=== PATIENT | male | born 1960 | race Caucasian/White ===

== ENCOUNTER 2018-04-27 11:01 | Inpatient (IN) | payer OTHER ==
[2018-04-27 11:10] VITALS: BMI 37.7
--- NOTE | 2018-04-27 14:10 | HP ---
CIWA Score - CIWA Score Nausea/Vomitin Muscle Tremors: 3 Anxiety: 3 Agitation: 3 Paroxysmal Sweats: 1-Minimal Palms Moist Orientation: 0-Oriented Tacttile Disturbances: 1-Very Mild Itch/Numbness Auditory Disturbances: 1-Very Mild Visual Disturbances: 0-None Headache: 2-Mild CIWA-Ar Total Score: 17 Admission ROS BHS - HPI Chief Complaint: i need help to sotp using xanax and klonopin Allergies/Adverse Reactions: Allergies Allergy/AdvReac Type Severity Reaction Status Date / Time No Known Allergies Allergy Verified 04/27/18 12:33 History of Present Illness: this 57 years old male with klonopin and xanax dependence,seeking detox, withdrawal symptom,last detox nicotine dependence schizophrenia last detox 2014 multiple admissions in the past last 13 years ago longest period of sobriety 13 years Exam Limitations: No Limitations - Ebola screening Have you traveled outside of the country in the last 21 days: No Have you been sick,other than usual withdrawal symptoms: No - Review of Systems Constitutional: Loss of Appetite, Malaise, Night Sweats, Changes in sleep, Weakness EENT: reports: Nose Congestion Respiratory: reports: No Symptoms reported Cardiac: reports: Palpitations GI: reports: Diarrhea, Nausea, Vomiting, Abdominal cramping : reports: No Symptoms Reported Musculoskeletal: reports: Back Pain, Muscle Pain, Joint Stiffness Integumentary: reports: Dryness Neuro: reports: No Symptoms reported, See HPI, Headache, Tremors Endocrine: reports: No Symptoms Reported Hematology: reports: No Symptoms Reported Psychiatric: reports: Anxious, Depressed Patient History - Patient Medical History Hx Anemia: No Hx Asthma: No Hx Chronic Obstructive Pulmonary Disease (COPD): No Hx Cardiac Disorders: No Hx Hypertension: Yes (no med) Hx Seizures: No Hx Diabetes: No Hx Gastrointestinal Disorders: No Hx Liver Disease: No Hx Genitourinary Disorders: No Hx Sexually Transmitted Disorders: No Hx Renal Disease (ESRD): No Hx Thyroid Disease: No Hx Human Immunodeficiency Virus (HIV): No (negative 2012 negative) Hx Hepatitis C: No Hx Depression: Yes Hx Suicide Attempt: No Hx Schizophrenia: No Other Medical History: no suicidal no homicidal - Patient Surgical History Past Surgical History: Yes Hx Neurologic Surgery: No Hx Cataract Extraction: No Hx Cardiac Surgery: No Hx Lung Surgery: No Hx Breast Surgery: No Hx Breast Biopsy: No Hx Abdominal Surgery: No Hx Appendectomy: No Hx Cholecystectomy: No Hx Genitourinary Surgery: No Hx Section: No Hx Orthopedic Surgery: No Other Surgical History: bilateral inguinal hernia repair in 1983 - PPD History Previous Implant?: Yes Documented Results: Negative w/o proof Implanted On Prior [facility] Admission?: Yes PPD to be Administered?: Yes - Smoking Cessation Smoking history: Current every day smoker Have you smoked in the past 12 months: Yes Aproximately how many cigarettes per day: 1 Hx Chewing Tobacco Use: No Initiated information on smoking cessation: Yes 'Breaking Loose' booklet given: 04/27/18 - Substance & Tx. History Hx Alcohol Use: No Hx Substance Use: Yes Substance Use Type: Tranquilizers Hx Substance Use Treatment: Yes ([facility] 2012) - Substances Abused Xanax or Klonopin Route: Oral Frequency: Daily Amount used: 2-3 mg. Age of first use: 56 Date of Last Use: 04/26/18 Family Disease History - Family Disease History Family History: Denies Admission Physical Exam [facility] - Vital Signs Vital Signs: Vital Signs - 24 hr 04/27/18 11:02 Temperature 97.2 F L Pulse Rate 106 H Respiratory 18 Rate Blood Pressure 151/95 - Physical General Appearance: Yes: Moderate Distress, Tremorous, Irritable, Sweating, Anxious HEENTM: Yes: Normal ENT Inspection, DARYA, Pharynx Normal Respiratory: Yes: Lungs Clear, Normal Breath Sounds, No Respiratory Distress Neck: Yes: Within Normal Limits, Supple, Trachea in good position Breast: Yes: Within Normal Limits Cardiology: Yes: Within Normal Limits, Regular Rhythm, Regular Rate, S1, S2 Abdominal: Yes: Within Normal Limits, Normal Bowel Sounds, Non Tender, Flat, Soft Genitourinary: Yes: Within Normal Limits Back: Yes: Muscle Spasm Musculoskeletal: Yes: Back pain, Muscle Pain Extremities: Yes: Tremors Neurological: Yes: senior financial reporting analyst II-XII NML intact, Fully Oriented, Alert, Motor Strength 5/5 Integumentary: Yes: Dry Lymphatic: Yes: Within Normal Limits - Diagnostic (1) Uncomplicated sedative, hypnotic or anxiolytic withdrawal Current Visit: Yes Status: Acute (2) Schizophrenia Current Visit: Yes Status: Acute Cleared for Admission [facility] - Detox or Rehab [facility] Level of Care: Medically Managed Detox Regimen/Protocol: Valium [facility] Breath Alcohol Content Breath Alcohol Content: 0 Urine Drug Screen - Results Drug Screen Negative: No Urine Drug Screen Results: BZO-Benzodiazepines
[2018-04-27] MEDS ORDERED: MENTHOL/PHENOL 1 EACH UD MM PRN (14:37)
[2018-04-27] MEDS ORDERED: IBUPROFEN 400 MG TABLET (FP) PO PRN (14:37)
[2018-04-27] MEDS ORDERED: P-EPHED 60MG/TRIPROLIDI 2.5MG TABLET PO PRN (14:37)
[2018-04-27] MEDS ORDERED: ACETAMINOPHEN 325 MG TABLET (FP) PO PRN (14:37)
[2018-04-27] MEDS ORDERED: MAGNESIUM HYDROX 2400MG/30ML ORAL SUSPENSION 30 ML CUP PO PRN (14:37)
[2018-04-27] MEDS ORDERED: MAG HYDROX/AL HYDROX/SIMETH 30 ML UNIT-DOSE CUP PO PRN (14:37)
[2018-04-27] MEDS ORDERED: LOPERAMIDE HCL 2 MG CAPSULE PO PRN (14:37)
[2018-04-27] MEDS ORDERED: MAGNESIUM CITRATE 300 ML BOTTLE PO PRN (14:37)
[2018-04-27] MEDS ORDERED: guaiFENesin/D-METHORPHAN HB 10 ML UNIT-DOSE CUPS PO PRN (14:37)
[2018-04-27] MEDS ORDERED: diazePAM 5 MG TABLET PO ONE (15:00)
--- NOTE | 2018-04-27 15:59 | EKG ---
Test Reason : Blood Pressure : / mmHG Vent. Rate : 059 BPM Atrial Rate : 059 BPM P-R Int : 166 ms QRS Dur : 098 ms QT Int : 404 ms P-R-T Axes : 045 -05 026 degrees QTc Int : 399 ms SINUS BRADYCARDIA MODERATE VOLTAGE CRITERIA FOR LVH, MAY BE NORMAL VARIANT BORDERLINE ECG NO PREVIOUS ECGS AVAILABLE Confirmed by Aneta Vegas ([id number]) on 04/27/2018 3:59:39 PM Referred By: Anne-Marie Yoon Confirmed By:Aneta Vegas
[2018-04-27 17:59] LABS: URINE APPEARANCE CLEAR; URINE BILIRUBIN NEGATIVE (<2.0 mg/dL); URINE COLOR LTYELLOW; URINE GLUCOSE (UA) NEGATIVE (NEGATIVE); URINE KETONE NEGATIVE (NEGATIVE); URINE LEUK ESTERASE NEGATIVE (NEGATIVE); URINE NITRITE NEGATIVE (NEGATIVE); URINE PROTEIN NEGATIVE (NEGATIVE); URINE UROBILINOGEN NEGATIVE mg/dL (0.2-1.0)
[2018-04-27] MEDS: diazePAM 5 MG TABLET PO PRN (19:25)
[2018-04-27] MEDS ORDERED: MELATONIN 5 MG TABLETS PO PRN (22:00)
[2018-04-27] MEDS: diazePAM 5 MG TABLET PO SCH (22:09)
[2018-04-27] MEDS: THIAMINE HCL 100 MG TABLET (FP) PO SCH (22:09)
[2018-04-28] MEDS: diazePAM 5 MG TABLET PO PRN ×3 (04:12→17:39)
[2018-04-28] MEDS: diazePAM 5 MG TABLET PO SCH ×3 (05:51→22:04)
[2018-04-28 10:05] LABS: HEMATOCRIT 44.5 % (35.4-49); HEMOGLOBIN 15.2 GM/dL (11.7-16.9); MCH 30.1 pg (25.7-33.7); MCHC 34.2 g/dl (32.0-35.9); MEAN CELL VOLUME 87.9 fl (80-96); MEAN PLT VOLUME 10.5 fl (7.5-11.1); PLATELET COUNT 64 K/MM3 (134-434); RBC 5.06 M/mm3 (4.00-5.60); RDW 14.5 % (11.9-15.9); WHITE BLOOD COUNT 7.6 K/mm3 (4.0-10.0)
[2018-04-28] MEDS: PRENATAL VITAMINS W/ FOLIC ACID TABLET (FP) PO SCH (10:14)
[2018-04-28 10:22] LABS: CHLORIDE 109 mmol/L (98-107); SODIUM 141 mmol/L (136-145)
[2018-04-28 10:38] LABS: ALK PHOS 55 U/L (45-117); ANION GAP 13 MMOL/L (8-16); BILIRUBIN,TOTAL 1.1 mg/dL (0.2-1.0); BLOOD UREA NITROGEN 11 mg/dL (7-18); CALCIUM 9.3 mg/dL (8.5-10.1); CO2 19 mmol/L (21-32); CREATININE 1.1 mg/dL (0.7-1.3); GLUCOSE,RANDOM 92 mg/dL (74-106); SGPT/ALT 97 U/L (12-78); TOT PROT 7.9 g/dl (6.4-8.2)
[2018-04-28 10:41] LABS: POTASSIUM 4.2 mmol/L (3.5-5.1); SGOT/AST 72 U/L (15-37)
--- NOTE | 2018-04-28 12:45 | CONSULT ---
[facility] Psychiatric Consult - Data Date of interview: 04/28/18 Admission source: [facility] Identifying data: Patient is a 57 year old single male, father of two, living with family and currently unemployed. This is patient's first admission to detox at [facility]. Pt. admitted to for benzodizapine dependence. Substance Abuse History: Smoking Cessation. Smoking history: Current every day smoker. Have you smoked in the past 12 months: Yes. Aproximately how many cigarettes per day: 1. Hx Chewing Tobacco Use: No. Initiated information on smoking cessation: Yes. 'Breaking Loose' booklet given: 04/27/18. - Substance & Tx. History. Hx Alcohol Use: No. Hx Substance Use: Yes. Substance Use Type : Tranquilizers. Hx Substance Use Treatment: Yes ([facility] 2012). - Substances Abused. Xanax or Klonopin. Route: Oral. Frequency: Daily. Amount used: 2- 3 mg. Age of first use: 56. Date of Last Use: 04/26/18 Medical History: bilateral inguinal hernia repair in 1983 Psychiatric History: Patient's first psychiatric contact was in 2010 at [facility] for depression. Stated he started to experience an increase in depression and auditory halluincation after his father became ill in [id number]( father 3 months ago). Pt. was most recently hospitalized at [facility] 1.5 years ago for auditory hallucinations. Pt. currently reports hearing voices on and off but none today. Pt. presents with paranoia by believing people are following him. Pt. denies h/o command auditory hallucinations. Pt presents as calm and cooperative and is willing to continue treatment. Outpatient services is provided at [facility] although patient is unsure if he is currently seeing a psychiatrist or physician. As per pharmacy claims, an electronic prescription of risperdal 1mg qhs + Zoloft 50mg + Vistaril 25mg BID was sent to patient's pharmacy on 04/07/18. Pt. reports medication compliance. Pt. denies h/o suicide attempt. Physical/Sexual Abuse/Trauma History: denies. Mental Status Exam - Mental Status Exam Alert and Oriented to: Time, Place, Person Cognitive Function: Good Patient Appearance: Well Groomed Mood: Anxious Affect: Mood Congruent Patient Behavior: Restless, Cooperative Speech Pattern: Appropriate Voice Loudness: Normal Thought Process: Goal Oriented Thought Disorder: Not Present Hallucinations: Auditory (History of auditory hallucinations. None at the moment ) Suicidal Ideation: Denies Homicidal Ideation: Denies Insight/Judgement: Poor Sleep: Fair Appetite: Fair Muscle strength/Tone: Normal Gait/Station: Normal Psychiatric Findings - Problem List ([place] 1, 2,3) (1) Uncomplicated sedative, hypnotic or anxiolytic withdrawal Current Visit: Yes Status: Acute (2) Schizoaffective disorder Current Visit: Yes Status: Chronic Qualifiers: Schizoaffective disorder type: depressive Qualified Code(s): F25.1 - Schizoaffective disorder, depressive type - Initial Treatment Plan Initial Treatment Plan: Psychoeducation provided. Detoxification in progress. Will order zoloft 50mg + Risperdal 1mg qhs. Vistaril 50mg q4h was ordered by JAILER CHIEF. Benefits and side effects discussed. Verbal consent given.
--- NOTE | 2018-04-28 15:03 | PN ---
[facility] CIWA - CIWA Score Nausea/Vomitin-No Nausea/No Vomiting Muscle Tremors: 3 Anxiety: 4-Mod. Anxious/Guarded Agitation: 1-Slight > Activity Paroxysmal Sweats: No Perspiration Orientation: 0-Oriented Tacttile Disturbances: 2-Mild Itch/Numbness/Burn Auditory Disturbances: 1-Very Mild Visual Disturbances: 3-Moderate Sensitivity Headache: 0-None Present CIWA-Ar Total Score: 14 [facility] Progress Note (SOAP) Subjective: Diarrhea, Body Aches, Tremors, Anxious. Objective: PATIENT A & O X 3, OBSERVED AMBULATING ON UNIT. NO ACUTE DISTRESS. PATIENT DENIES CHEST PAIN. PATIENT DENIES ANY KNOWN HISTORY OF CARDIAC DISEASE OR OF PREVIOUS ECG ABNORMALITY. 04/28/18 15:00 Vital Signs Temperature 97.5 F L 04/28/18 13:42 Pulse Rate 73 04/28/18 13:42 Respiratory Rate 18 04/28/18 13:42 Blood Pressure 159/95 04/28/18 13:42 O2 Sat by Pulse Oximetry (%) Laboratory Tests 04/27/18 04/28/18 04/28/18 15:41 06:00 06:00 WBC 7.6 RBC 5.06 Hgb 15.2 Hct 44.5 MCV 87.9 MCH 30.1 MCHC 34.2 RDW 14.5 Plt Count 64 L MPV 10.5 Platelet Comment No clumping noted Sodium 141 Potassium 4.2 Chloride 109 H Carbon Dioxide 19 L Anion Gap 13 BUN 11 Creatinine 1.1 Creat Clearance w eGFR > 60 Random Glucose 92 Calcium 9.3 Total Bilirubin 1.1 H AST 72 H ALT 97 H Alkaline Phosphatase 55 Total Protein 7.9 Albumin 4.0 Urine Color Ltyellow Urine Appearance Clear Urine pH 6.0 Ur Specific [place] 1.005 Urine Protein Negative Urine Glucose (UA) Negative Urine Ketones Negative Urine Blood Negative Urine Nitrite Negative Urine Bilirubin Negative Urine Urobilinogen Negative Ur Leukocyte Esterase Negative RPR Titer 04/28/18 06:00 WBC RBC Hgb Hct MCV MCH MCHC RDW Plt Count MPV Platelet Comment Sodium Potassium Chloride Carbon Dioxide Anion Gap BUN Creatinine Creat Clearance w eGFR Random Glucose Calcium Total Bilirubin AST ALT Alkaline Phosphatase Total Protein Albumin Urine Color Urine Appearance Urine pH Ur Specific [place] Urine Protein Urine Glucose (UA) Urine Ketones Urine Blood Urine Nitrite Urine Bilirubin Urine Urobilinogen Ur Leukocyte Esterase RPR Titer Nonreactive LABS NOTED. 04/28/18 15:01 Assessment: 04/28/18 15:01 WITHDRAWAL SYMPTOMS. THROMBOCYTOPENIA. 04/28/18 15:01 Plan: CONTINUE DETOX. CLONIDINE, 0.1 MG PO BID FOR ELEVATED BP AND FOR WITHDRAWAL SYMPTOMS.
[2018-04-28] MEDS ORDERED: CYCLOBENZAPRINE HCL 10 MG TABLET (FP) PO PRN (15:04)
[2018-04-28] MEDS ORDERED: cloNIDine HCL 0.1 MG TABLET PO ONE (15:45)
[2018-04-28] MEDS: hydrOXYzine PAMOATE 50 MG CAPSULE (FP) PO PRN (19:40)
[2018-04-28] MEDS ORDERED: risperiDONE 1 MG TABLET (FP) PO SCH (22:00)
[2018-04-28] MEDS: cloNIDine HCL 0.1 MG TABLET PO SCH (22:02)
[2018-04-28] MEDS: THIAMINE HCL 100 MG TABLET (FP) PO SCH (22:02)
[2018-04-29] MEDS: hydrOXYzine PAMOATE 50 MG CAPSULE (FP) PO PRN (03:55)
[2018-04-29] MEDS: diazePAM 5 MG TABLET PO PRN ×2 (05:49→13:41)
[2018-04-29] MEDS ORDERED: SERTRALINE HCL 50 MG TABLET (FP) PO SCH (10:00)
[2018-04-29] MEDS ORDERED: diazePAM 5 MG TABLET PO SCH (10:00)
[2018-04-29] MEDS: PRENATAL VITAMINS W/ FOLIC ACID TABLET (FP) PO SCH (10:28)
[2018-04-29] MEDS: cloNIDine HCL 0.1 MG TABLET PO SCH (10:28)
--- NOTE | 2018-04-29 12:36 | PN ---
Psychiatric Progress Note Vital Signs: Vital Signs Period Temp Pulse Resp BP Sys/Burnette Pulse Ox Last 24 Hr 97.0 F-97.8 F 67-88 18-20 142-159/82-98 Date of Session: 04/29/18 Chief Complaint:: " I am hearing voices.They are loud and scaring." HPI: Case of a 57 y/o male admitted to [address] [place] [address] for detoxification treatment(benzodiazepine dependence) who is currently presenting with florid auditory hallucinations calling his name,berating him and threatening him of harm.Mr Garza is aculely agitated,restless and grossly incoherent.Acutely psychotic. ROS: Agitated.Disorganized and incoherent. Current Medications: Active Medications Generic Name Dose Route Start Last Admin Trade Name Freq PRN Reason Stop Dose Admin Acetaminophen 650 mg 04/27/18 14:37 Tylenol - PO Q4H PRN FEVER Al Hydroxide/Mg Hydroxide 30 ml 04/27/18 14:37 Mylanta Oral Suspension - PO Q6H PRN DYSPEPSIA Clonidine 0.1 mg 04/28/18 22:00 04/29/18 10:28 Catapres - PO 0.1 mg BID DARRYL Administration Cyclobenzaprine HCl 10 mg 04/28/18 15:04 04/28/18 18:54 Flexeril - PO 10 mg TID PRN Administration MUSCLE SPASMS Diazepam 10 mg 04/27/18 14:37 04/29/18 05:49 Valium - PO 04/30/18 14:36 10 mg Q4H PRN Administration WITHDRAWAL(CONT SUBST) Diazepam 5 mg 04/29/18 10:00 04/29/18 10:28 Valium - PO 04/30/18 22:01 5 mg BID DARRYL Administration Diazepam 5 mg 05/01/18 10:00 Valium - PO 05/01/18 10:01 DAILY DARRYL Eucalyptus/Menthol/Phenol/Sorbitol 1 each 04/27/18 14:37 Cepastat Lozenge - MM Q4H PRN SORE THROAT Guaifenesin 10 ml 04/27/18 14:37 Robitussin Dm - PO Q6H PRN COUGH Hydroxyzine Pamoate 50 mg 04/27/18 14:37 04/29/18 03:55 Vistaril - PO 50 mg Q4H PRN Administration AGITATION Ibuprofen 400 mg 04/27/18 14:37 Motrin - PO Q6H PRN PAIN LEVEL 4-6 Loperamide HCl 4 mg 04/27/18 14:37 Imodium - PO Q6H PRN DIARRHEA Magnesium Citrate 300 ml 04/27/18 14:37 Citroma - PO Q48H PRN CONSTIPATION Magnesium Hydroxide 30 ml 04/27/18 14:37 Milk Of Magnesia - PO DAILY PRN CONSTIPATION Melatonin 5 mg 04/27/18 22:00 04/27/18 22:09 Melatonin PO 5 mg HS PRN Administration INSOMNIA Multivit/Folic Acid/Iron 1 tab 04/28/18 10:00 04/29/18 10:28 Vitamins (Sjr) - PO 1 tab DAILY DARRYL Administration Pseudoephedrine/Triprolidine 1 combo 04/27/18 14:37 Actifed - PO TID PRN NASAL CONGESTION Risperidone 1 mg 04/28/18 22:00 04/28/18 22:04 Risperdal - PO Not Given HS DARRYL Sertraline HCl 50 mg 04/29/18 10:00 04/29/18 10:28 Zoloft - PO 50 mg DAILY DARRYL Administration Thiamine HCl 100 mg 04/27/18 22:00 04/28/18 22:02 Vitamin B1 - PO 100 mg HS DARRYL Administration Medication(s) Change(s): Risperdal 1 mg po bid.Side effects/benefits discussed with the patient.Mr Garza agrees to this careplan. Current Side Effect: No Lab tests ordered: No Lab tests reviewed: Yes Provider note:: Called for crisis intervention.Mr Garza is currently in an acute state of psychotic decompensation.Patient is agitated,running around, rambling,crying and causing a commotion on the unit.Oblivious to reassurance and verbal redirections.The patient is noted as incoherent,grossly disorganized, erratic and out of control.He reports loud,pejorative auditory hallucinations, feeling of " losing my mind ", intense fear due to the threatening voices and the urge to run away from the hospital to " escape " from the threats made by his hallucinations.Patient is escalating.Has become unmanageable on the detoxification unit.Currently posing an immediate danger to self.Condition warrants upgraded psychiatric care at another facility.Contact is made with the psychiatrist on-call ([phone]) at the [facility] in [place].Case discussed via telephone.Accepted.Mr Garza is, in the meantime, placed under Constant Observation (1:1).Awaits transfer, via EMS, to the psychiatric emergency department at [facility].Discussed with the Multidisciplinary treatment team. Total face to face time:: 60 Mental Status Exam - Mental Status Exam Alert and Oriented to: Place, Person Cognitive Function: Impaired Patient Appearance: Unkempt, Disheveled Mood: Fearful, Anxious Affect: Labile Patient Behavior: Restless, Wandering, Agitated Speech Pattern: Rambling, Excessive Voice Loudness: Normal Thought Process: Disorganized Thought Disorder: Bizarre Hallucinations: Auditory (voices commenting negatively about him and threatening him) Suicidal Ideation: Current (the voices are telling him that he is bad and that he should hurt himself ; patient is afraid that he might obey the commands of his hallucinations) Homicidal Ideation: Denies Insight/Judgement: Poor Sleep: Poorly, Difficulty falling asleep Appetite: Fair Muscle strength/Tone: Normal Gait/Station: Normal Psychiatric Treatment Plan - Problem List (1) Psychosis Comment: .Acute episode. (2) Schizoaffective disorder Qualifiers: Schizoaffective disorder type: depressive Qualified Code(s): F25.1 - Schizoaffective disorder, depressive type Comment: . (3) Uncomplicated sedative, hypnotic or anxiolytic withdrawal Comment: . (4) Substance induced mood disorder Comment: .
--- NOTE | 2018-04-29 14:04 | PN ---
[facility] CIWA - CIWA Score Nausea/Vomitin-No Nausea/No Vomiting Muscle Tremors: 5 Anxiety: 5 Agitation: 5 Paroxysmal Sweats: 3 Orientation: 0-Oriented Tacttile Disturbances: 2-Mild Itch/Numbness/Burn Auditory Disturbances: 0-None Visual Disturbances: 0-None Headache: 0-None Present CIWA-Ar Total Score: 20 [facility] Progress Note (SOAP) Subjective: Body Aches, Sweating, Tremors, Anxious, Agitated. Objective: PATIENT A & O X 3, OBSERVED AMBULATING ON UNIT. 04/29/18 13:58 Vital Signs Temperature 97.0 F L 04/29/18 09:45 Pulse Rate 88 04/29/18 09:45 Respiratory Rate 18 04/29/18 09:45 Blood Pressure 144/82 04/29/18 09:45 O2 Sat by Pulse Oximetry (%) Laboratory Tests 04/27/18 04/28/18 04/28/18 15:41 06:00 06:00 WBC 7.6 RBC 5.06 Hgb 15.2 Hct 44.5 MCV 87.9 MCH 30.1 MCHC 34.2 RDW 14.5 Plt Count 64 L MPV 10.5 Platelet Comment No clumping noted Sodium 141 Potassium 4.2 Chloride 109 H Carbon Dioxide 19 L Anion Gap 13 BUN 11 Creatinine 1.1 Creat Clearance w eGFR > 60 Random Glucose 92 Calcium 9.3 Total Bilirubin 1.1 H AST 72 H ALT 97 H Alkaline Phosphatase 55 Total Protein 7.9 Albumin 4.0 Urine Color Ltyellow Urine Appearance Clear Urine pH 6.0 Ur Specific [place] 1.005 Urine Protein Negative Urine Glucose (UA) Negative Urine Ketones Negative Urine Blood Negative Urine Nitrite Negative Urine Bilirubin Negative Urine Urobilinogen Negative Ur Leukocyte Esterase Negative RPR Titer 04/28/18 06:00 WBC RBC Hgb Hct MCV MCH MCHC RDW Plt Count MPV Platelet Comment Sodium Potassium Chloride Carbon Dioxide Anion Gap BUN Creatinine Creat Clearance w eGFR Random Glucose Calcium Total Bilirubin AST ALT Alkaline Phosphatase Total Protein Albumin Urine Color Urine Appearance Urine pH Ur Specific [place] Urine Protein Urine Glucose (UA) Urine Ketones Urine Blood Urine Nitrite Urine Bilirubin Urine Urobilinogen Ur Leukocyte Esterase RPR Titer Nonreactive LABS NOTED. Assessment: 04/29/18 14:00 WITHDRAWAL SYMPTOMS. Plan: CONTINUE DETOX. PATIENT REPORTS SEVERE ANXIETY AND THAT HE IS HEARING VOICES. PATIENT DENIES THAT THE VOICES ARE INSTRUCTING HIM TO HURT HIMSELF OR ANYONE ELSE. PSYCHIATRIC EVALUATION REQUESTED.
--- NOTE | 2018-04-29 14:10 | DS ---
[facility] Detox Discharge Summary Admission Date: 04/27/18 Discharge Date: 04/29/18 - History Present History: Sedative Dependence Additional Comments: AFTER REPORTING THAT HE IS HEARING VOICES, PSYCHIATRIC EVALUATION WITH DR. CORRALES WAS ORDERED. PER RECOMMENDATION OF DR. CORRALES, PATIENT TO BE TRANSFERRED (VIA AMBULANCE) TO [facility] FOR FURTHER EVALUATION. PATIENT WAS DISCHARGED FROM DETOX UNIT TO BE TRANSFERRED TO [facility] IN STABLE MEDICAL CONDITION. Pertinent Past History: History of Depression, HTN, Schizoaffective Disorder. - Physical Exam Results Vital Signs: Vital Signs Temperature 97.0 F L 04/29/18 09:45 Pulse Rate 88 04/29/18 09:45 Respiratory Rate 18 04/29/18 09:45 Blood Pressure 144/82 04/29/18 09:45 O2 Sat by Pulse Oximetry (%) Pertinent Admission Physical Exam Findings: WITHDRAWAL SYMPTOMS. Laboratory Tests 04/27/18 04/28/18 04/28/18 15:41 06:00 06:00 WBC 7.6 RBC 5.06 Hgb 15.2 Hct 44.5 MCV 87.9 MCH 30.1 MCHC 34.2 RDW 14.5 Plt Count 64 L MPV 10.5 Platelet Comment No clumping noted Sodium 141 Potassium 4.2 Chloride 109 H Carbon Dioxide 19 L Anion Gap 13 BUN 11 Creatinine 1.1 Creat Clearance w eGFR > 60 Random Glucose 92 Calcium 9.3 Total Bilirubin 1.1 H AST 72 H ALT 97 H Alkaline Phosphatase 55 Total Protein 7.9 Albumin 4.0 Urine Color Ltyellow Urine Appearance Clear Urine pH 6.0 Ur Specific [place] 1.005 Urine Protein Negative Urine Glucose (UA) Negative Urine Ketones Negative Urine Blood Negative Urine Nitrite Negative Urine Bilirubin Negative Urine Urobilinogen Negative Ur Leukocyte Esterase Negative RPR Titer 04/28/18 06:00 WBC RBC Hgb Hct MCV MCH MCHC RDW Plt Count MPV Platelet Comment Sodium Potassium Chloride Carbon Dioxide Anion Gap BUN Creatinine Creat Clearance w eGFR Random Glucose Calcium Total Bilirubin AST ALT Alkaline Phosphatase Total Protein Albumin Urine Color Urine Appearance Urine pH Ur Specific [place] Urine Protein Urine Glucose (UA) Urine Ketones Urine Blood Urine Nitrite Urine Bilirubin Urine Urobilinogen Ur Leukocyte Esterase RPR Titer Nonreactive LABS NOTED. - Treatment Hospital Course: Detox Protocol Followed, Detoxed Safely Patient has Accepted a Rehab Referral to: PT. BEING TRANSFERRED TO [facility] FOR EVALUATION. - Medication Discharge Medications: Ambulatory Orders Hydroxyzine HCl 25 mg PO BID 04/27/18 Risperidone [Risperdal] 1 mg PO HS 04/27/18 Sertraline HCl [Zoloft -] 50 mg PO DAILY 04/27/18 - Diagnosis (1) Uncomplicated sedative, hypnotic or anxiolytic withdrawal Current Visit: Yes Status: Acute (2) Schizoaffective disorder Current Visit: Yes Status: Chronic Qualifiers: Schizoaffective disorder type: depressive Qualified Code(s): F25.1 - Schizoaffective disorder, depressive type - AMA Did Patient Leave Against Medical Advice: No
[2018-04-29 14:35] VITALS: BP 131/83; PULSE 67
[2018-04-29 15:33] VITALS: TEMP 97.9
[2018-04-29] MEDS ORDERED: risperiDONE 1 MG TABLET (FP) PO SCH (22:00)
[2018-05-01] MEDS ORDERED: diazePAM 5 MG TABLET PO SCH (10:00)
== END 2018-04-29 15:27 | DRG 776 ==
LOC: YASAS 11:01 → Y3N 14:53
PROVIDERS: ADMIT Surgery; ATTEND Surgery
PROC: HZ2ZZZZ Detoxification Services for Substance Abuse Treatment (ICD-10-PCS; principal; 2018-04-27)
DX: F13.230 Sedative, hypnotic or anxiolytic dependence with withdrawal, uncomplicated (principal); F17.210 Nicotine dependence, cigarettes, uncomplicated; F19.24 Other psychoactive substance dependence with psychoactive substance-induced mood disorder; F29 Unspecified psychosis not due to a substance or known physiological condition; F25.9 Schizoaffective disorder, unspecified; D69.6 Thrombocytopenia, unspecified
CPT/HCPCS: 36415; 80053; 81003; 85027; 86593; 93005; 93010; J0735